=== PATIENT | male | born 1990 | race Hispanic/Latino ===

== ENCOUNTER 2018-08-30 22:08 | Emergency (ER) | payer OTHER, SELFPAY ==
[~2018-08-30 22:08] MED LIST: Sodium Chloride Irrig Solution 250 ML BOT ONE
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
[2018-08-31] MEDS ORDERED: Ibuprofen 800 MG TAB ONE (00:53)
[2018-08-31] MEDS ORDERED: Adacel (T-DAP) 0.5 ML VIAL ONE (00:53)
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
== END 2018-08-31 01:20 | disposition home or self-care (01) ==
LOC: MADERS 22:08
DX: S16.1XXA Strain of muscle, fascia and tendon at neck level, initial encounter (principal); S60.222A Contusion of left hand, initial encounter; S80.02XA Contusion of left knee, initial encounter; S40.012A Contusion of left shoulder, initial encounter; V49.9XXA Car occupant (driver) (passenger) injured in unspecified traffic accident, initial encounter
CPT/HCPCS: 71046; 72040; 90471; 90715; 93005; G0390